=== PATIENT | female | born 1985 | race Hispanic/Latino ===

== ENCOUNTER 2022-12-24 03:01 | Emergency (ER) | payer BC ==
[~2022-12-24] VITALS: Ht 157.5 cm; Wt 75.3 kg
[2022-12-24 03:03] VITALS: BP 137/81
[2022-12-24 04:16] LABS: BASOPHILS % (AUTO) 0.6 % (0.0-5.0); EOSINOPHILS % (AUTO) 5.3 % (0.0-8.0); HEMATOCRIT 40.7 % (36-48); LYMPHOCYTES % (AUTO) 32.8 % (21.0-51.0); MEAN CORPUSCULAR HEMOGLOBIN 30.2 pg (27.0-33.0); MEAN CORPUSCULAR HGB CONC 31.9 g/dL (32.0-36.0); MEAN CORPUSCULAR VOLUME 94.4 fL (79-99); MONOCYTES % (AUTO) 5.4 % (3.0-13.0); NEUTROPHILS % (AUTO) 55.7 % (40.0-77.0); PLATELET COUNT (AUTO) 304 K/uL (130-400); RED BLOOD CELL COUNT(AUTO) 4.31 MIL/uL (4.00-5.50); RED CELL DISTRIBUTION WIDTH 13.6 % (11.0-15.5); WHITE BLOOD COUNT (AUTO) 9.7 K/uL (4.8-10.8)
[2022-12-24 04:17] LABS: APPEARANCE,URINE CLEAR (CLEAR); BILIRUBIN,URINE NEGATIVE (NEGATIVE); COLOR,URINE LIGHT-YELLOW (YELLOW); GLUCOSE, URINE (UA) NEGATIVE (NEGATIVE); KETONES,URINE NEGATIVE (NEGATIVE); LEUKOCYTE ESTERASE ,URINE NEGATIVE Leu/uL (NEGATIVE); NITRATE,URINE NEGATIVE (NEGATIVE); OCCULT BLOOD,URINE LARGE (NEGATIVE); PH,URINE 5.5 (5.0-8.0); PROTEIN,URINE NEGATIVE (NEGATIVE); UROBILINOGEN,URINE 0.2 mg/dL (0.2-1.0)
[2022-12-24 04:21] LABS: HCG,QUALITATIVE URINE NEGATIVE (NEGATIVE)
[2022-12-24 04:23] LABS: BACTERIA,URINE RARE /HPF (None Seen); MUCUS,URINE FEW LPF (None Seen); SQUAMOUS EPITHELIAL CELL,UR FEW /HPF (0-2)
[2022-12-24 04:25] LABS: CREATININE 0.7 mg/dL (0.5-1.5); POTASSIUM 3.8 mmol/L (3.5-5.1)
[2022-12-24] MEDS ORDERED: KETOROLAC 30MG VIAL (30MG/ML) IVP ONE (04:30)
[2022-12-24] MEDS ORDERED: MORPHINE 4 MG SYG IVP ONE (04:30)
[2022-12-24] MEDS ORDERED: 0.9%NACL 1000ML 1,000 ML IV ONE (04:30)
[2022-12-24] MEDS ORDERED: ONDANSETRON 4MG INJ IVP ONE (04:30)
[2022-12-24 04:35] LABS: TOTAL PROTEIN, SERUM 7.7 g/dL (6.0-8.3)
[2022-12-24] MEDS ORDERED: IBUP-1493 PO (06:11)
[2022-12-24] MEDS ORDERED: ONDA-104 PO (06:11)
[2022-12-24] MEDS ORDERED: TAMS-1 PO (06:11)
== END 2022-12-24 06:20 | disposition home or self-care (01) ==
LOC: EDH 03:01
DX: N20.1 Calculus of ureter (principal)
CPT/HCPCS: 99284; 74176; 96374; 96375; 96361; 80053; 84702; 83690; 85025; 81001; 81025; 36415; J7030; J2405; J2270; J1885